=== PATIENT | male | born 1990 | race Caucasian/White ===

== ENCOUNTER 2022-10-19 09:19 | Emergency (ER) | payer BC, SELFPAY ==
[2022-10-19 09:26] VITALS: BP 155/82; PULSE 114; RESP 18; TEMP 36.6; O2SAT 99
--- NOTE | 2022-10-19 09:59 | ED.URI ---
HPI - URI/Sore Throat General Chief Complaint: Upper Respiratory Infection Stated Complaint: Sore Throat/Ear Problem Time Seen by Provider: 10/19/22 10:00 History of Present Illness HPI Narrative: Patient presents with bilateral ear pain and nasal congestion. Sore throat. Patient is not taking anything for his symptoms at this time. No trouble swallowing no drooling no fever. Related Data Home Medications Medication Instructions Recorded Confirmed atorvastatin 20 mg tablet 20 mg PO DAILY 10/19/22 10/19/22 meloxicam 15 mg tablet 15 mg PO DAILY PRN Pain 10/19/22 10/19/22 methocarbamol 750 mg tablet 750 mg PO BID 10/19/22 10/19/22 metoprolol succinate 50 mg 50 mg PO DAILY 10/19/22 10/19/22 tablet,extended release 24 hr rivaroxaban 20 mg tablet (Xarelto) 20 mg PO QPM 10/19/22 10/19/22 valsartan 320 1 tablet PO DAILY 10/19/22 10/19/22 mg-hydrochlorothiazide 12.5 mg tablet Allergies Allergy/AdvReac Type Severity Reaction Status Date / Time No Known Allergies Allergy Verified 10/19/22 09:53 Review of Systems Review of Systems: CONSTITUTIONAL: Denies chills, or sweats. Reports fever and generalized body aches EYES: Denies visual changes, redness, or discharge. ENT: Denies otalgia. Reports nasal congestion runny nose and sore throat CARDIOVASCULAR: Denies chest pain, palpitations, or edema. RESPIRATORY: Denies dyspnea. Reports occasional cough GASTROINTESTINAL: Denies abdominal pain, nausea, vomiting, or diarrhea. GENITOURINARY: Denies dysuria or hematuria. SKIN: Denies rash or itching. MUSCULOSKELETAL: Denies back pain, joint pain, or myalgia. Reports generalized body aches NEUROLOGIC: Denies headache, numbness, or weakness. PSYCHIATRIC: Denies anxiety or depression. PMFSH Comments At time of signature, agree with nursing past medical, surgical, social and family history. There is no relevant family history pertinent to the presenting complaint Exam Narrative: The patient is a well-developed, well-nourished in no acute distress. SKIN: Skin is warm and dry without erythema, swelling or exudate. There is good turgor. No tenting. HEAD: Atraumatic. Normocephalic. No temporal or scalp tenderness. EYES: Moist and bright. Sclera and conjunctivae normal. No discharge. PERRLA. Extraocular motions intact. Gross visual acuity intact. EARS: Pinna is normal shape and contour. Clear external auditory canals. TM pearly duncan with good cone of light, no erythema or suppuration. Bilateral cerumen noted no gross hearing deficit. NOSE: pink, moist mucosa with good air movement. Clear rhinorrhea without nasal flaring. Septum midline. Mouth: moist mucous membranes. THROAT; mild erythema noted to posterior oropharynx with moderate postnasal drainage. Without exudate or ulceration.. Uvula midline. Normal movement of soft palate. NECK: Supple and nontender with full range of motion without discomfort. No meningeal signs. LUNGS: Equal and bilateral breath sounds without wheezes, rales or rhonchi. CHEST: The chest wall is without retractions or use of accessory muscles. HEART: Has a regular rate and rhythm without murmur, gallops, click or rub. ABDOMEN: Soft, nontender with positive active bowel sounds. No rebound tenderness. EXTREMITIES: Without cyanosis, clubbing or edema. Equal 2+ distal pulses and 2 second capillary refill noted. NEUROLOGIC: alert, active, . The patient moves all extremities with normal muscle strength. Normal muscle tone is noted. Normal coordination is noted. NO focal neurological findings noted. Course Course Level of Care: Express Care Visit Vital Signs Vital signs: Vital Signs Temperature 36.6 C 10/19/22 09:26 Pulse Rate 114 H 10/19/22 09:26 Respiratory Rate 18 10/19/22 09:26 Blood Pressure 155/82 H 10/19/22 09:26 Pulse Oximetry 99 10/19/22 09:26 Oxygen Delivery Room Air 10/19/22 09:26 Temperature 36.6 C 10/19/22 09:26 Pulse Rate 114 H 10/19/22 09:26 Respiratory Rate 18 10/05
== END 2022-10-19 10:05 | disposition home or self-care (01) ==
PROVIDERS: Emergency Provider Nurse Practitioner Family
DX: J06.9 Acute upper respiratory infection, unspecified (principal); B34.9 Viral infection, unspecified; I48.91 Unspecified atrial fibrillation; E78.00 Pure hypercholesterolemia, unspecified; I10 Essential (primary) hypertension
CPT/HCPCS: 87081; 87880; 99213; G0463